=== PATIENT | male | born 1990 | race Caucasian/White ===

== ENCOUNTER 2025-02-12 10:37 | Outpatient (CLI) | payer BC, SELFPAY ==
--- NOTE | ~2025-02-12 | MR_ITS ---
EXAMINATION: MR brain/brain stem wo con DATE: 02/12/2025 11:44 INDICATION: Epilepsy TECHNIQUE: Magnetic resonance imaging (MRI) of the brain and brainstem was performed without intraven ous contrast. Sequences included sagittal and axial T1-weighted SE, axial diffusion-weighted FS SE, a xial T2*-weighted GRE, axial T2-weighted FLAIR Propeller, axial T2-weighted Propeller, coronal T2-madie ghted FLAIR, and coronal T1-weighted 3D FSPGR. Apparent diffusion coefficient (ADC) maps were created . COMPARISON: 08/02/2004 FINDINGS: There are no areas of restricted diffusion to suggest acute infarction. There is a single 9 x 7 x 6 m m T2 hyperintense, T1 hypointense lesion in the lateral anterior right temporal lobe which is without evident mass effect or surrounding edema and which is new since the prior study. Bilateral hippocamp i are normal and symmetric. No evident esqueda matter heterotopias or other neural migrational abnormali ties. No intracranial hemorrhage or other abnormal intracranial mass lesion. There are no intraparenc hymal signal abnormalities seen on the other pulse sequences. The ventricles are symmetric and normal in size. There are no abnormal extra-axial fluid collections. Flow voids are seen in the cerebral ar teries on the T2-weighted sequences consistent with their expected patency. Visualized orbits and sof t tissues are unremarkable. IMPRESSION: 1. Indeterminate 9 x 7 x 6 mm T2 hyperintense, T1 hypointense lesion at the lateral anterior right te mporal lobe without restricted diffusion to suggest acute infarct. Differential would include subacut e stroke, the demyelinating disease, neoplasm including lymphoma or metastatic disease and inflammato ry etiologies including vasculitis or autoimmune disorder. Would recommend obtaining additional pre a nd postcontrast MRI to assess for enhancement. Reviewed, dictated and finalized at location A. IMPRESSION: 1. Indeterminate 9 x 7 x 6 mm T2 hyperintense, T1 hypointense lesion at the lat eral anterior right temporal lobe without restricted diffusion to suggest acute infarct. Differential would include subacute stroke, the demyelinating disease , neoplasm including lymphoma or metastatic disease and inflammatory etiologies including vasculitis or autoimmune disorder. Would recommend obtaining additio nal pre and postcontrast MRI to assess for enhancement.
== END 2025-02-12 10:38 | disposition home or self-care (01) ==
LOC: GOSHIMG 10:39
PROVIDERS: PCP Psychiatry & Neurology Neurology; Visit Provider Psychiatry & Neurology Neurology
DX: G40.909 Epilepsy, unspecified, not intractable, without status epilepticus (principal)
CPT/HCPCS: 70551

== ENCOUNTER 2025-04-09 13:58 | Outpatient (CLI) | payer BC, SELFPAY ==
[2025-04-09 14:27] LABS: Hematocrit 46.8 % (42.0-52.0); Hemoglobin 15.9 g/dL (14.0-18.0); Immature Granulocyte Percent A 0.4 % (0-0.5); Lymphocytes Absolute Auto 3.68 K/mm3 (0.9-3.2); Mean Corpuscular HGB Conc 34.0 g/dl (32-36); Mean Corpuscular Hemoglobin 31.2 pg (26-34); Mean Corpuscular Volume 91.9 fl (80-100); Nucleated Red Blood Cells Absolute Auto 0.000 K/mm3 (0.0-0.012); Nucleated Red Blood Cells Perc 0.0 % (0.0-0.2); Platelet Count Result 284 k/mm3 (150-375); Red Blood Count 5.09 M/mm3 (4.6-6.20); White Blood Count 10.7 K/mm3 (4.5-10.0)
[2025-04-09 14:50] LABS: Alanine Aminotransferase 25 U/L (6-50); Albumin Level 4.6 g/dL (3.5-5.1); Alkaline Phosphatase 51 U/L (38-126); Anion Gap 4 mmol/L (4-12); Aspartate Amino Transferase 37 U/L (17-59); Bilirubin,Total 0.6 mg/dL (0.2-1.3); Blood Urea Nitrogen 9 mg/dL (9-20); Calcium 9.2 mg/dL (8.4-10.2); Carbon Dioxide 31 mmol/L (22-30); Chloride 103 mmol/L (98-107); Cholesterol 171 mg/dL (0-200); Estimated Glomerular Filt Rate > 60; Glucose 89 mg/dL (65-110); HDL Direct 51 mg/dL; Potassium 4.4 mmol/L (3.4-5.0); Sodium 138 mmol/L (137-145); Total Protein 7.8 g/dL (6.3-8.2); Triglycerides 76 mg/dL (<150)
[2025-04-15 11:08] LABS: Valproic Acid (Depakote),T 91 ug/mL (50-100)
== END 2025-04-09 13:59 | disposition home or self-care (01) ==
LOC: ANHLAB 13:59
PROVIDERS: PCP Internal Medicine; Visit Provider Psychiatry & Neurology Neurology
DX: G40.909 Epilepsy, unspecified, not intractable, without status epilepticus (principal); I63.89 Other cerebral infarction
CPT/HCPCS: 36415; 80053; 80061; 80164; 80165; 82306; 85025

== ENCOUNTER 2025-06-08 10:00 | Outpatient (CLI) | payer BC, SELFPAY ==
--- NOTE | ~2025-06-08 | US_ITS ---
Clinical History: G40.909 - Epilepsy, unspecified, not intractable, without... Examination: US carotid duplex BI Comparison: None Technique: Grayscale, color, duplex/spectral Doppler sonography carotid and vertebral arteries. Distal CCA and Peak ICA systolic velocities provided. Society of Radiologists in Ultrasound (SRU) consensus criteria utilized, indirectly assessing stenosis by velocities. Findings: No plaque noted Right side: CCA - 86 cm/sec. ICA - 64 cm/sec. ICA/CCA - 0.7 Left Side: CCA - 92 cm/sec. ICA - 95 cm/sec. ICA/CCA - 1.0 Normal antegrade flow measured bilateral vertebral arteries. IMPRESSION: 1. No hemodynamically significant ICA stenosis (i.e., if any stenosis, less than 50%). 2. Normal bilateral antegrade vertebral artery flow. Stenosis measured by Society of Radiologists in Ultrasound (SRU) criteria. Reviewed, dictated and finalized at location R. SCOOPER MACHINE IMPRESSION: 1. No hemodynamically significant ICA stenosis (i.e., if any stenosis, less th an 50%). 2. Normal bilateral antegrade vertebral artery flow. Stenosis measured by Society of Radiologists in Ultrasound (SRU) criteria.
== END 2025-06-08 10:01 | disposition home or self-care (01) ==
PROVIDERS: PCP Internal Medicine; Visit Provider Psychiatry & Neurology Neurology
DX: G40.909 Epilepsy, unspecified, not intractable, without status epilepticus (principal); I63.89 Other cerebral infarction
CPT/HCPCS: 93880

== ENCOUNTER 2025-06-12 08:28 | Outpatient (CLI) | payer BC, SELFPAY ==
--- OUTSIDE RECORDS SUMMARY | 2025-06-12 08:33 | XMS_ITS | Clinical Summary ---
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 Role Phone Unavailable Primary Care Provider Unavailabl e Social History Tobacco Use Types Packs/Day Years Used Date Smoking Tobacco: Never Assessed Sex and Gender Information Value Date Recorded Sex Assigned at Not on file Legal Sex Male 6:00 PM CDT Gender Identity Not on file Sexual Orientation Not on file Plan of Treatment Health Maintenance Due Date Last Done Comments Annual Physical 1992 Hepatitis C 10/10/2007 DTaP, Tdap and Td Vaccines ( 1 - Tdap) 2008 Hepatitis B Vaccines (1 of 3 - 19+ 3-dose series) 2008 HPV Vaccines (1 - 3-dose SCD M series) 2016 COVID-19 Vaccine ( - 2024-2 6 season) 2025 Influenza Adult (#1) 2025 Hepatitis A Vaccines Aged Out No long er eligible based on patient's age to complete this topic Meningococcal B Vaccine Aged Out No l onger eligible based on patient's age to complete this topic Meningococcal Vaccine Aged Out No ines robe eligible based on patient's age to complete this topic Pneumococcal Vaccine: Pediat rics (0 to 5 Years) and At-Risk Patients (6 to 49 Years) Aged Out No longer eligible b ased on patient's age to complete this topic RSV Immunizations Under 20 Months Aged Out No longer eligible based on patient's age to complete this topic
--- NOTE | 2025-06-12 08:41 | ECHO_ITS ---
Patient Info Name: Lalo Tilley Age: 34 years : 1990 Gender: Male Ht: 71 in Wt: 165 lbs BSA: 1.94 m2 HR: 84 bpm BP: 126 / 89 mmHg Technical Quality: Good Exam Date: 06/12/2025 9:05 AM Patient Status: O Admit Date: 06/12/2025 Exam Type: CA echo dop bubble study w con Complete two-dimentional, color flow and Doppler transthoracic echocardiogram is performed with agitated saline and with contrast to opacify the left ventricle and to improve the delineation of the left ventricle endocardial borders. Pool Manager: Silvia Linda Attending Provider: Mounika Rico Contrast/Agitated Saline Contrast/Ag. Saline: Definity Amount: 2.00 ml Contrast/Ag. Saline: Agitated Saline Amount: 20.00 ml Summary 1. Definity contrast administered improved wall motion interpretation. 2. Left ventricular chamber dimension is normal. 3. Left ventricular systolic function is normal, estimated at 55-60. 4. The left ventricular diastolic function is normal. 5. E/e' 5 is not elevated. Left Ventricle Definity contrast administered improved wall motion interpretation. Left ventricular chamber dimension is normal. Left ventricular systolic function is normal, estimated at 55-60. The left ventricular diastolic function is normal. E/e' 5 is not elevated. Right Ventricle Right ventricular chamber dimension is normal. Right ventricular systolic function is normal and with normal TAPSE 1.8 cm. Left Atria Left atrial chamber dimension is normal. Right Atria Right atrial chamber dimension is normal. Atrial Septum Intact interatrial septum visualized by 2D and agitated saline imaging. Agitated saline injection with and without valsalva maneuver opacified right side cardiac chambers without shunt to left side cardiac chambers. Aortic Valve The aortic valve is trileaflet. There is no aortic valve stenosis. There is no aortic valve regurgitation. Pulmonic Valve There is no pulmonic regurgitation. Mitral Valve There is no mitral valve stenosis. There is no mitral valve regurgitation. Tricuspid Valve There is no tricuspid valve regurgitation. Pericardium/Pleural There is no pericardial effusion. Inferior Vena Cava Normal inferior vena cava with >50% collapse upon inspiration consistent with normal right atrial pressure, 5 mmHg. Aorta The aortic root size at the sinus of Valsalva is normal. Left Ventricular Outflow Tract Name Value Normal LVOT 2D LVOT Diameter 2.0 cm LVOT Doppler LVOT Peak Velocity 105 cm/s LVOT Peak Gradient 4 mmHg LVOT Mean Gradient 2 mmHg LVOT VTI 21 cm LVOT Stroke Volume 67 ml LVOT CO 5.6 l/min LVOT CI 2.9 l/min/m2 Pulmonic Valve Name Value Normal RVOT Doppler RVOT Peak Velocity 66 cm/s RVOT Peak Gradient 2 mmHg PV Doppler PV Peak Velocity 88 cm/s PV Peak Gradient 3 mmHg Mitral Valve Name Value Normal MV Diastolic Function MV E Peak Velocity 75 cm/s MV A Peak Velocity 68 cm/s MV E/A 1.1 MV Decel Time (PW) 196 ms MV Annular TDI MV E/e' (Septal) 7.1 MV E/e' (Lateral) 4.4 MV E/e' (Average) 5.8 Tricuspid Valve Name Value Normal Estimated PAP/RSVP RA Pressure 5 mmHg <=5 Aortic Valve Name Value Normal AV Doppler AV Peak Velocity 118 cm/s AV Peak Gradient 6 mmHg AV Area (Cont Eq Luis Alfredo) 2.9 cm2 AV DI (Luis Alfredo) 0.89 AV Regurgitation 2D LVOT Area 3.3 cm2 Ventricles Name Value Normal LV Dimensions 2D/MM IVS Diastolic Thickness (2D) 1.1 cm 0.6-1.0 LVID Diastole (2D) 4.7 cm 4.2-5.8 LVIW Diastolic Thickness (2D) 1.0 cm 0.6-1.0 LVID Systole (2D) 3.1 cm 2.5-4.0 LVOT Diameter 2.0 cm LV Mass (2D Cubed) 173.49 g 88.00-224.00 LV Mass Index (2D Cubed) 90 g/m2 49-115 Relative Wall Thickness (2D) 0.41 <=0.42 LV Fractional Shortening/Ejection Fraction 2D/MM LV Fractional Shortening (2D) 34 % 25-43 LV EF (2D Teichholz) 62 % LV Diastolic Volume (4C MOD) 120 ml LV EF (4C MOD) 51 % LV Diastolic Volume (2C MOD) 133 ml LV EF (2C MOD) 64 % LV Diastolic Volume (BP MOD) 131 ml 62-150 LV Diastolic Volume Index (BP MOD) 68 ml/m2 34-74 LV Systolic Volume (BP MOD) 58 ml 21-61 LV Systolic Volume Index (BP MOD) 30 ml/m2 11-31 LV EF (BP MOD) 55 % 52-72 LV Diastolic Length (4C) 8.0 cm LV Systolic Length (4C) 7.0 cm LV Stroke Volume (4C MOD) 61 ml Atria Name Value Normal LA Dimensions LA Volume (4C A-L) 24 ml LA Volume (BP A-L) 23 ml RA Dimensions RA Systolic Major [place] Length (4C) 4.3 cm 2.1-2.7 RA Area (4C) 13.9 cm2 <=18.0 Report Signatures
[2025-06-12] MEDS: PERFLUTREN LIPID MICROSPHERES 1.5 ML VIAL DILUTED TO 10 ML TOTAL VOLUME IV PUSH (10:05)
--- NOTE | 2025-06-12 10:05 | IVDEFINITY ---
Prior to administration of IV Definity the patient was educated on the risks and benefits of the imaging enhancing agent including potential adverse side effects. The patient verbalized understanding. Allergies were verified. No exclusion criteria were identified and at least one of the following inclusion criteria were met: 1) physician request, 2) patient technically difficult to image (per the [place] [employer] Echocardi[employer] guidelines of two or more segments not discernable within the apical view), or 3) questionable left ventricular function. ?
== END 2025-06-12 08:29 | disposition home or self-care (01) ==
LOC: ANHCARD 08:30
PROVIDERS: PCP Internal Medicine; Visit Provider Psychiatry & Neurology Neurology
DX: G40.909 Epilepsy, unspecified, not intractable, without status epilepticus (principal); I63.89 Other cerebral infarction
CPT/HCPCS: 96375; C8929; Q9957